=== PATIENT | male | born 2000 | race African-American/Black ===

== ENCOUNTER 2022-09-15 15:07 | Emergency (ER) | payer MEDICAID ==
[~2022-09-15] VITALS: Ht 177.8 cm; Wt 100.0 kg
[2022-09-15 15:12] VITALS: BP 150/90
[2022-09-15 16:50] LABS: BASOPHILS % 0.2 % (0.0-2.0); EOSINOPHILS % 0.3 % (0.0-5.0); HEMATOCRIT. 47.3 % (42.0-52.0); HEMOGLOBIN. 16.4 g/dL (14.0-18.0); LYMPHOCYTES % 23.5 % (20.0-50.0); MEAN CORPUSCULAR HEMOGLOBIN 32.2 pg (28.0-32.0); MEAN CORPUSCULAR VOLUME 92.7 fL (80.0-94.0); MEAN PLATELET VOLUME 8.4 fl (7.4-10.4); MONOCYTES % 6.4 % (2.0-8.0); NEUTROPHILS % 69.6 % (40.0-76.0); PLATELET 224 x1000/uL (130-400); RED CELL DISTRIBUTION WIDTH 13.5 % (11.6-14.6)
[2022-09-15 17:01] LABS: CHLORIDE 105 mEq/L (98-107)
[2022-09-15 17:13] LABS: ETHANOL BLOOD < 10 mg/dL
== END 2022-09-15 19:46 | disposition home or self-care (01) ==
LOC: ER 15:07
DX: R41.0 Disorientation, unspecified (principal); R03.0 Elevated blood-pressure reading, without diagnosis of hypertension; R00.0 Tachycardia, unspecified; F31.9 Bipolar disorder, unspecified
CPT/HCPCS: 36415; 80053; 80307; 80320; 80329; 82962; 85025; 99284; G0480